=== PATIENT | male | born 1985 | race Two or more races ===

== ENCOUNTER 2024-12-06 16:46 | Emergency (ER) | payer SELFPAY ==
[~2024-12-06] VITALS: Ht 170.2 cm; Wt 70.6 kg
[2024-12-06] MEDS ORDERED: IBUP-1455 PO (17:52)
[2024-12-06] MEDS ORDERED: HYDR-4798 PO (17:52)
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
[2024-12-06] MEDS: HYDROcodone-ACET 10/325MG TAB PO ONE (19:41)
[2024-12-06] MEDS: KETOROLAC TROMETH 60MG/2ML VIAL IM ONE (19:44)
[2024-12-06 19:49] VITALS: BP 141/77; PULSE 79; RESP 20; TEMP 98; O2SAT 96
== END 2024-12-06 19:51 | disposition home or self-care (01) ==
LOC: ER 16:46 → EDBD 16:46 → EEVIPCON 16:46 → ER 19:51
DX: S42.021A Displaced fracture of shaft of right clavicle, initial encounter for closed fracture (principal); S42.031A Displaced fracture of lateral end of right clavicle, initial encounter for closed fracture; S40.011A Contusion of right shoulder, initial encounter; V89.2XXA Person injured in unspecified motor-vehicle accident, traffic, initial encounter; Y92.410 Unspecified street and highway as the place of occurrence of the external cause; Y93.89 Activity, other specified; Y99.8 Other external cause status
CPT/HCPCS: 73000; 73030; 96372; 99284; J1885